=== PATIENT | male | born 1975 | race Caucasian/White ===

== ENCOUNTER 2021-02-15 19:24 | Emergency (ER) | payer MEDICAID ==
[~2021-02-15] VITALS: Ht 170.2 cm; Wt 84.0 kg
[2021-02-15] MEDS ORDERED: KETOROLAC 30MG/ML VIAL IV STA (22:31)
[2021-02-15] MEDS ORDERED: ONDANSETRON HCL 4MG/2ML INJ IV STA (22:31)
[2021-02-15] MEDS ORDERED: SODIUM CHLORIDE 0.9% 1,000 ML IV ONE (22:45)
[2021-02-15 23:10] LABS: CHLORIDE 99 mEq/L (98-107); HEMATOCRIT. 34.7 % (42.0-52.0); HEMOGLOBIN. 11.9 g/dL (14.0-18.0); MEAN CORPUSCULAR HEMOGLOBIN 31.4 pg (28.0-32.0); MEAN PLATELET VOLUME 7.1 fl (7.4-10.4); PLATELET 185 x1000/uL (130-400); RED BLOOD CELL COUNT 3.77 mill/uL (4.7-6.1); RED CELL DISTRIBUTION WIDTH 14.2 % (11.6-14.6)
[2021-02-15 23:12] LABS: INR 1.3
[2021-02-15 23:14] LABS: ETHANOL BLOOD < 10 mg/dL
[2021-02-15 23:27] LABS: PLATELET ESTIMATE NORMAL
[2021-02-15] MEDS ORDERED: MORPHINE SULFATE 4 MG/ML CPJ (NOT FOR IM USE) IV ONE (23:45)
[2021-02-16 00:36] VITALS: BP 126/71
== END 2021-02-16 00:38 | disposition home or self-care (01) ==
LOC: ER 19:24 → CANBEDREQ 02-16 04:11
DX: K42.9 Umbilical hernia without obstruction or gangrene (principal); R10.9 Unspecified abdominal pain; I11.0 Hypertensive heart disease with heart failure; I50.9 Heart failure, unspecified; Z20.822 Contact with and (suspected) exposure to COVID-19; F10.20 Alcohol dependence, uncomplicated; Y90.0 Blood alcohol level of less than 20 mg/100 ml
CPT/HCPCS: 36415; 71045; 80053; 80320; 83605; 83690; 85025; 85610; 87426; 96361; 96374; 96375; 99284; J1885; J2405; J7030; G0480